=== PATIENT | female | born 1985 | race Caucasian/White ===

== ENCOUNTER 2016-09-18 18:08 | Emergency (ER) | payer OTHER ==
[2016-09-18 19:06] VITALS: BP 118/88
[2016-09-18] MEDS ORDERED: Albuterol/Ipratropium NEB.SOL* Albuterol 2.5 MG/Ipratropium 0.5 MG 3 ML INH ONE (19:40)
[2016-09-18] MEDS ORDERED: Ondansetron ODT TAB* 4 MG PO ONE (19:41)
--- NOTE | 2016-09-18 19:41 | UC ---
Abdominal Pain Female HPI - HPI Summary HPI Summary: nausea, vomiting diarrhea, cough and fever for 1 day and daughter with same sx - History of Current Complaint Chief Complaint: UCGeneralIllness Stated Complaint: FEVER, COUGH, VOMITING Time Seen by Provider: 09/18/16 19:18 Hx Obtained From: Patient Hx Last Menstrual Period: 09/06/16 ?: No Onset/Duration: Sudden Onset, Lasting Days - 1, Still Present Timing: Constant Severity Initially: Mild Severity Currently: Mild Pain Intensity: 4 Pain Scale Used: 0-10 Numeric Location: Diffuse Radiates: No Character: Aching, Cramping Aggravating Factor(s): Food Alleviating Factor(s): Nothing Associated Signs and Symptoms: Positive: Fever, Cough, Nausea, Vomiting, Diarrhea Allergies/Adverse Reactions: Allergies Allergy/AdvReac Type Severity Reaction Status Date / Time NARCOTICS AdvReac See Comment Uncoded 09/18/16 19:07 Home Medications: Home Medications Acetaminophen [Extra Strength Acetaminop] 1,000 mg PO Q6H PRN 09/18/16 [History Confirmed 09/18/16] Albuterol 2.5MG/3ML (0.083%)* [Ventolin 2.5 MG/3 ML NEB.CURRY*] 2.5 mg INH Q4H 12/28 [History Confirmed 09/18/16] Albuterol HFA INHALER* [Ventolin HFA Inhaler*] 2 puff INH Q4H PRN 09/18/16 [ History Confirmed 09/18/16] Ibuprofen TAB* [Advil TAB*] 600 mg PO Q6H PRN 09/18/16 [History Confirmed ] Lisinopril [Zestril 5 MG-] 5 mg PO DAILY 09/18/16 [History Confirmed 09/18/16] Loperamide CAP* [Imodium CAP*] 4 mg PO Q4H PRN 09/18/16 [History Confirmed 09/18] busPIRone TAB* [Buspar TAB*] 7.5 mg PO BID 09/18/16 [History Confirmed 09/18/16] PMH/Surg Hx/FS Hx/Imm Hx Previously Healthy: No Endocrine History Of: Reports: Thyroid Disease - BORDERLINE HYPO Cardiovascular History Of: Reports: Hypertension Respiratory History Of: Reports: Asthma Psychological History Of: Reports: Anxiety - Surgical History Surgical History: Yes Surgery Procedure, Year, and Place: INTESTINAL. STOMACH. COLOSTOMY WITH REVERSAL. TENDON LLE. CYSTECTOMY FROM OVARY. TUBAL. CHOLECYSTECTOMY. CYST REMOVED FROM NASAL CAVATY - Family History Known Family History: Positive: Hypertension - Social History Occupation: Employed Full-time Lives: With Family Alcohol Use: None Substance Use Type: None Smoking Status (MU): Never Smoked Tobacco Review of Systems Constitutional: Fever, Chills, Fatigue Skin: Negative Eyes: Negative ENT: Negative Respiratory: Cough Cardiovascular: Negative Gastrointestinal: Negative, Vomiting, Diarrhea Genitourinary: Negative Motor: Negative Neurovascular: Negative Musculoskeletal: Negative Neurological: Negative Psychological: Negative All Other Systems Reviewed And Are Negative: Yes Physical Exam Triage Information Reviewed: Yes Appearance: Ill-Appearing, Pain Distress, Obese Vital Signs: Initial Vital Signs Temp 100.8 F 09/18/16 18:56 Pulse 112 09/18/16 18:56 Resp 20 09/18/16 18:56 BP 118/88 09/18/16 18:56 Pulse Ox 99 09/18/16 18:56 Vital Signs Reviewed: Yes Eye Exam: Normal Eyes: Positive: Conjunctiva Clear ENT Exam: Normal ENT: Positive: Normal ENT inspection, Hearing grossly normal, Pharynx normal, TMs normal. Negative: Nasal congestion, Nasal drainage, Tonsillar swelling, Tonsillar exudate, Trismus, Muffled/hoarse voice Neck exam: Normal Neck: Positive: Supple, Nontender, No Lymphadenopathy Respiratory Exam: Normal Respiratory: Positive: Chest non-tender, Lungs clear, Normal breath sounds, No respiratory distress, No accessory muscle use, Other: - bronchospastic cough Cardiovascular Exam: Normal Cardiovascular: Positive: RRR, No Murmur, Pulses Normal, Brisk Capillary Refill Abdominal Exam: Normal Abdomen Description: Positive: Nontender, No Organomegaly, Soft Bowel Sounds: Positive: Present Musculoskeletal Exam: Normal Musculoskeletal: Positive: Strength Intact, ROM Intact, No Edema Neurological Exam: Normal Neurological: Positive: Alert, Muscle Tone Normal Psychological Exam: Normal Psychological: Positive: Normal Response To Family Diagnostics - Laboratory Diagnostic Studies Completed/Ordered: Influenza A/B (-) Re-Evaluation - Re-Evaluation First Eval Change: Improved - cough resolved after nebulizer Abd Pain Female Course/Dx - Course Course Of Treatment: neb q 4hours prn cough/bronchospasm, zofran, advance diet slowly rest follow with pcp - Differential Dx/Diagnosis Differential Diagnosis: Peptic Ulcer Disease, Other - viral illness, influenza, bronchospasm Provider Diagnoses: Bronchospasm, acute nausea/voming/diarrhea Discharge - Discharge Plan Condition: Stable Disposition: HOME Prescriptions: Albuterol 2.5MG/3ML (0.083%)* [Ventolin 2.5 MG/3 ML NEB.CURRY*] 2.5 mg INH Q4H PRN #1 box PRN Reason: cough and wheeze Ondansetron ODT TAB* [Zofran 4 MG Odt TAB*] 4 mg PO Q6H PRN #6 tab.odt PRN Reason: nausea Patient Education Materials: Clear Liquid Diet (ED), Diet for Ulcers and Gastritis (ED), Acute Nausea and Vomiting (ED), Bronchospasm (ED), Nutrition Tips for Relief of Diarrhea (ED) Referrals: Hamilton Wild MD [Primary Care Provider] - 3 Days
== END 2016-09-18 20:26 | disposition home or self-care (01) ==
LOC: UCCORT 18:08
DX: J98.01 Acute bronchospasm (principal); R11.2 Nausea with vomiting, unspecified; R19.7 Diarrhea, unspecified; E03.9 Hypothyroidism, unspecified; I10 Essential (primary) hypertension; F41.9 Anxiety disorder, unspecified; Z90.49 Acquired absence of other specified parts of digestive tract; E66.9 Obesity, unspecified; Z88.5 Allergy status to narcotic agent
CPT/HCPCS: 87502; 99212; A9270-GY; G0463

== ENCOUNTER 2016-09-20 10:15 | Emergency (ER) | payer OTHER ==
[2016-09-20 11:44] VITALS: BP 129/55
--- NOTE | 2016-09-20 12:20 | UC ---
Abdominal Pain Female HPI - HPI Summary HPI Summary: Pt presents with c/o continued loose stools X 3-4 days. Pt was diagnosed with gastroenteritis on 09/18/16. Pt was given zofran and continues with nausea and frequent loose stools 3-4 X's a day. - History of Current Complaint Chief Complaint: UCGI Stated Complaint: DIARRHEA,FEVER,COUGH Time Seen by Provider: 09/20/16 12:01 Hx Obtained From: Patient Hx Last Menstrual Period: 09/06/16 ?: No Onset/Duration: Sudden Onset, Lasting Days Severity Initially: Mild Severity Currently: Mild Radiates: No Character: Cramping Aggravating Factor(s): Food Alleviating Factor(s): Nothing Associated Signs and Symptoms: Positive: Diarrhea Allergies/Adverse Reactions: Allergies Allergy/AdvReac Type Severity Reaction Status Date / Time NARCOTICS AdvReac See Comment Uncoded 09/20/16 11:35 PMH/Surg Hx/FS Hx/Imm Hx Previously Healthy: Yes - recetn history of gastroenteritis Endocrine History Of: Reports: Thyroid Disease - BORDERLINE HYPO Cardiovascular History Of: Reports: Hypertension Respiratory History Of: Reports: Asthma Psychological History Of: Reports: Anxiety - Surgical History Surgical History: Yes Surgery Procedure, Year, and Place: INTESTINAL. STOMACH. COLOSTOMY WITH REVERSAL. TENDON LLE. CYSTECTOMY FROM OVARY. TUBAL. CHOLECYSTECTOMY. CYST REMOVED FROM NASAL CAVATY - Family History Known Family History: Positive: Hypertension - Social History Alcohol Use: None Substance Use Type: None Smoking Status (MU): Never Smoked Tobacco Review of Systems Constitutional: Chills, Fatigue Skin: Negative Eyes: Negative ENT: Negative Respiratory: Cough Cardiovascular: Negative Gastrointestinal: Abdominal Pain, Diarrhea, Other - nausea Genitourinary: Negative Motor: Negative Neurovascular: Negative Musculoskeletal: Myalgia Neurological: Negative Psychological: Negative All Other Systems Reviewed And Are Negative: Yes Physical Exam Triage Information Reviewed: Yes Appearance: Ill-Appearing Vital Signs: Initial Vital Signs Temp 98.5 F 09/20/16 11:37 Pulse 83 09/20/16 11:37 Resp 20 09/20/16 11:37 BP 129/55 09/20/16 11:37 Pulse Ox 97 09/20/16 11:37 Vital Signs Reviewed: Yes ENT Exam: Normal Neck exam: Normal Respiratory Exam: Normal Cardiovascular Exam: Normal Abdominal Exam: Normal Bowel Sounds: Positive: Present Musculoskeletal Exam: Normal Neurological Exam: Normal Psychological Exam: Normal Skin Exam: Normal Abd Pain Female Course/Dx - Differential Dx/Diagnosis Differential Diagnosis: Other - gastroenteritis Provider Diagnoses: gastroenteritis Discharge - Discharge Plan Condition: Stable Disposition: HOME Prescriptions: Diphenoxylat/Atrop 2.5-0.025M* [Lomotil TAB*] 1 tab PO QID #8 tab MDD 4 Diphenoxylat/Atrop 2.5-0.025M* [Lomotil TAB*] 1 tab PO QID #4 tab MDD 4 pills Ondansetron ODT TAB* [Zofran 4 MG Odt TAB*] 4 mg PO Q6H PRN #12 tab.odt PRN Reason: Nausea Patient Education Materials: Acute Nausea and Vomiting (ED) Forms: *Work Release Referrals: Hamilton Wild MD [Primary Care Provider] - If Needed (Please follwo up with your PCP or return to clinic as needed. )
== END 2016-09-20 12:58 | disposition home or self-care (01) ==
LOC: UCCORT 10:15
DX: K52.9 Noninfective gastroenteritis and colitis, unspecified (principal); I10 Essential (primary) hypertension; J45.909 Unspecified asthma, uncomplicated; F41.9 Anxiety disorder, unspecified; Z88.5 Allergy status to narcotic agent; Z90.49 Acquired absence of other specified parts of digestive tract
CPT/HCPCS: 99212; G0463